=== PATIENT | male | born 1970 | race Caucasian/White ===

== ENCOUNTER 2019-08-11 08:06 | Emergency (ER) | payer OTHER ==
[~2019-08-11] VITALS: Ht 177 cm; Wt 97.3 kg
[2019-08-11 09:37] LABS: BASOPHILS % (AUTO) 0 % (0-10); EOSINOPHILS # (AUTO) 0.2 10^3/uL (0.0-0.3); EOSINOPHILS % (AUTO) 1 % (0-10); HEMATOCRIT 46 % (40-54); HEMOGLOBIN 16.1 G/DL (13.3-17.7); LYMPHOCYTES # (AUTO) 1.3 X 10^3 (1.0-4.0); LYMPHOCYTES % (AUTO) 9 % (12-44); MEAN CORPUSCULAR HEMOGLOBIN 29 PG (25-34); MEAN CORPUSCULAR HGB CONC 35 G/DL (32-36); MEAN CORPUSCULAR VOLUME 81 FL (80-99); MEAN PLATELET VOLUME 11.2 FL (7.4-10.4); MONOCYTES # (AUTO) 1.1 X 10^3 (0.0-1.0); MONOCYTES % (AUTO) 8 % (0-12); NEUTROPHILS # (AUTO) 11.3 X 10^3 (1.8-7.8); NEUTROPHILS % (AUTO) 81 % (42-75); PLATELET COUNT 215 10^3/uL (130-400); RED CELL DISTRIBUTION WIDTH 13.7 % (10.0-14.5); WHITE BLOOD COUNT 13.9 10^3/uL (4.3-11.0)
[2019-08-11 09:43] LABS: INR 0.9 (0.8-1.4)
[2019-08-11 09:49] LABS: ALANINE AMINOTRANSFERASE 58 U/L (0-55); ALBUMIN 4.7 GM/DL (3.2-4.5); ALKALINE PHOSPHATASE 70 U/L (40-136); BILIRUBIN,TOTAL 0.8 MG/DL (0.1-1.0); BUN/CREATININE RATIO 19; CALCIUM 9.8 MG/DL (8.5-10.1); CARBON DIOXIDE 23 MMOL/L (21-32); CHLORIDE 108 MMOL/L (98-107); CREATININE SERUM 1.16 MG/DL (0.60-1.30); GFR ESTIMATED > 60; GLUCOSE 98 MG/DL (70-105); POTASSIUM 4.4 MMOL/L (3.6-5.0); SODIUM 141 MMOL/L (135-145); TOTAL PROTEIN 7.9 GM/DL (6.4-8.2)
[2019-08-11] MEDS ORDERED: KETOROLAC 30 MG/ML VIAL IVP STA (09:50)
[2019-08-11] MEDS ORDERED: fentaNYL INJECTION 100 MCG/2 ML AMP IVP STA (09:50)
--- NOTE | 2019-08-11 09:55 | Diagnostic Imaging Report ---
INDICATION: Right hand swelling, rash FINDINGS: The lungs are clear. The heart size and vascularity are within normal limits. There is no effusion or pneumothorax. IMPRESSION: No acute appearing abnormality. Dictated by: Dictated on workstation # [id number]
--- NOTE | 2019-08-11 10:14 | ED General ---
General Chief Complaint: Upper Extremity Stated Complaint: R HAND PAIN Nursing Triage Note: PT PRESENTS TO ED WITH COMPLAINTS OF R HAND SWELLING, R ELBOW RASH AND SWELLING. REPORTS PAIN SHOOTING DOWN FROM R ELBOW TO R HAND. Nursing Sepsis Screen: No Definite Risk Source of Information: Patient Exam Limitations: No Limitations History of Present Illness Date Seen by Provider: Aug 11, 2019 Time Seen by Provider: 09:44 Initial Comments Here with report of right elbow pain and right hand pain at the third and fourth MCP joints. Redness noted of both areas. 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 Noted that he had right hand pain starting yesterday and right elbow pain. This is worsened today with increased swelling. Presents for concerns of infection. Denies nausea or vomiting. Denies specific injury. Timing/Duration: 24 Hours, Getting Worse Associated Systoms: No Chest Pain, No Cough, No Fever/Chills, No Headaches, No Nausea/Vomiting, No Shortness of Air, No Weakness Allergies and Home Medications Allergies Coded Allergies: No Known Drug Allergies (Unverified , 08/11/19) Home Medications No Active Prescriptions or Reported Meds Patient Home Medication List Home Medication List Reviewed: Yes Review of Systems Review of Systems Constitutional: see HPI; No chills, No fever EENTM: no symptoms reported Respiratory: no symptoms reported Cardiovascular: no symptoms reported Gastrointestinal: no symptoms reported Musculoskeletal: see HPI, joint pain, joint swelling, muscle pain Skin: change in color, lesions, rash Psychiatric/Neurological: No Symptoms Reported Hematologic/Lymphatic: No Symptoms Reported All Other Systems Reviewed Negative Unless Noted: Yes Past Gxpyrke-Ckdlrf-Hjleyw Hx Past Med/Social Hx: Reviewed Nursing Past Med/Soc Hx Patient Social History Alcohol Use: Denies Use Recreational Drug Use: No Smoking Status: Never a Smoker Type Used: Smokeless Tobacco Recent Foreign Travel: No Contact w/Someone Who Travel: No Recent Infectious Disease Expo: No Recent Hopitalizations: No Physical Abuse: No Sexual Abuse: No Mistreated: No Fear: No Seasonal Allergies Seasonal Allergies: No Past Medical History Surgeries: Yes (facial, jaw reconstruction) Orthopedic Respiratory: No Cardiac: No Neurological: No Genitourinary: No Gastrointestinal: No Musculoskeletal: No Endocrine: No HEENT: No Cancer: No Psychosocial: No Integumentary: No Blood Disorders: No Family Medical History Reviewed Nursing Family Hx No Pertinent Family Hx Physical Exam-Suspected Sepsis Physical Exam Vital Signs Vital Signs - First Documented 08/11/19 08:30 Temp 37.0 Pulse 69 Resp 20 B/P (MAP) 137/74 (95) Pulse Ox 93 Capillary Refill : Less Than 3 Seconds Blood Pressure Mean: 95 Height, Weight, BMI Height: '" Weight: lbs. oz. kg; 31.00 BMI Method: General Appearance: WD/WN, Mild Distress HEENT: PERRL/EOMI, Pharynx Normal Neck: Non Tender, Supple Respiratory: Lungs Clear, Normal Breath Sounds Cardiovascular: Regular Rate, Rhythm, No Murmur Gastrointestinal: Non Tender, Soft Back: Normal Inspection, No CVA Tenderness, No Vertebral Tenderness Extremity: Swelling (right elbow), Other (retains range of motion to the hand and elbow but pain with range of motion in both areas on the right.) Neurologic/Psychiatric: Alert, Oriented x3 Skin: warm/dry, other (erythema noted to the third and fourth MCP of the right hand with swelling into the webspace as well as erythema. Mild swelling and plaque psoriasis of the right elbow with tenderness to the medial aspect and posterior and lesser extent to the lateral aspect. Redness at the hand and elbow but not in between.) Focused Exam Lactate Level 08/11/19 09:10: Lactic Acid Level 1.11 Lactic Acid Level Laboratory Tests Test 08/11/19 09:10 Lactic Acid Level 1.11 MMOL/L (0.50-2.00) Progress/Results/Core Measures Suspected Sepsis Recent Fever Within 48 Hours: No Infection Criteria Present: None New/Unexplained Altered Menta: No Sepsis Screen: No Definite Risk SIRS Temperature: Pulse: 69 Respiratory Rate: 20 Laboratory Tests 08/11/19 09:10: White Blood Count 13.9H Blood Pressure 137 /74 Mean: 95 08/11/19 09:10: Lactic Acid Level 1.11 Laboratory Tests 08/11/19 09:10: Creatinine 1.16, INR Comment 0.9, Platelet Count 215, Total Bilirubin 0.8 Results/Orders Lab Results Laboratory Tests Test 08/11/19 09:10 08/11/19 11:02 Range/Units White Blood Count 13.9 H 4.3-11.0 10^3/uL Red Blood Count 5.64 4.35-5.85 10^6/uL Hemoglobin 16.1 13.3-17.7 G/DL Hematocrit 46 40-54 % Mean Corpuscular Volume 81 80-99 FL Mean Corpuscular Hemoglobin 29 25-34 PG Mean Corpuscular Hemoglobin Concent 35 32-36 G/DL Red Cell Distribution Width 13.7 10.0-14.5 % Platelet Count 215 130-400 10^3/uL Mean Platelet Volume 11.2 H 7.4-10.4 FL Neutrophils (%) (Auto) 81 H 42-75 % Lymphocytes (%) (Auto) 9 L 12-44 % Monocytes (%) (Auto) 8 0-12 % Eosinophils (%) (Auto) 1 0-10 % Basophils (%) (Auto) 0 0-10 % Neutrophils # (Auto) 11.3 H 1.8-7.8 X 10^3 Lymphocytes # (Auto) 1.3 1.0-4.0 X 10^3 Monocytes # (Auto) 1.1 H 0.0-1.0 X 10^3 Eosinophils # (Auto) 0.2 0.0-0.3 10^3/uL Basophils # (Auto) 0.0 0.0-0.1 10^3/uL Prothrombin Time 13.0 12.2-14.7 SEC INR Comment 0.9 0.8-1.4 Activated Partial Thromboplast Time 29 24-35 SEC Sodium Level 141 135-145 MMOL/L Potassium Level 4.4 3.6-5.0 MMOL/L Chloride Level 108 H 98-107 MMOL/L Carbon Dioxide Level 23 21-32 MMOL/L Anion Gap 10 5-14 MMOL/L Blood Urea Nitrogen 22 H 7-18 MG/DL Creatinine 1.16 0.60-1.30 MG/DL Estimat Glomerular Filtration Rate > 60 BUN/Creatinine Ratio 19 Glucose Level 98 70-105 MG/DL Lactic Acid Level 1.11 0.50-2.00 MMOL/L Calcium Level 9.8 8.5-10.1 MG/DL Corrected Calcium 8.5-10.1 MG/DL Total Bilirubin 0.8 0.1-1.0 MG/DL Aspartate Amino Transf (AST/SGOT) 48 H 5-34 U/L Alanine Aminotransferase (ALT/SGPT) 58 H 0-55 U/L Alkaline Phosphatase 70 40-136 U/L C-Reactive Protein High Sensitivity 1.37 H 0.00-0.50 MG/DL Total Protein 7.9 6.4-8.2 GM/DL Albumin 4.7 H 3.2-4.5 GM/DL Urine Color YELLOW Urine Clarity CLEAR Urine pH 8.5 5-9 Urine Specific [place] 1.020 1.016-1.022 Urine Protein NEGATIVE NEGATIVE Urine Glucose (UA) NEGATIVE NEGATIVE Urine Ketones NEGATIVE NEGATIVE Urine Nitrite NEGATIVE NEGATIVE Urine Bilirubin NEGATIVE NEGATIVE Urine Urobilinogen 0.2 < = 1.0 MG/DL Urine Leukocyte Esterase NEGATIVE NEGATIVE Urine RBC (Auto) NEGATIVE NEGATIVE Urine RBC NONE /HPF Urine WBC NONE /HPF Urine Squamous Epithelial Cells RARE /HPF Urine Crystals NONE /LPF Urine Bacteria NEGATIVE /HPF Urine Casts NONE /LPF Urine Mucus NEGATIVE /LPF Urine Culture Indicated NO My Orders Orders - CHARLY BURNS MD Cbc With Automated Diff (08/11/19 09:30) Comprehensive Metabolic Panel (08/11/19 09:30) Blood Culture (08/11/19 09:30) Sputum Culture (08/11/19 09:30) Urinalysis (08/11/19 09:30) Urine Culture (08/11/19 09:30) Protime With Inr (08/11/19 09:30) Partial Thromboplastin Time (08/11/19 09:30) Chest 1 View, Ap/Pa Only (08/11/19 09:30) Ed Iv/Invasive Line Start (08/11/19 09:30) Vital Signs Adult Sepsis Patie Q15M (08/11/19 09:30) O2 (08/11/19 09:30) Remove Rings In Anticipation O (08/11/19 09:30) Lactic Acid Analyzer (08/11/19 09:30) Hs C Reactive Protein (08/11/19 09:30) Fentanyl Injection (Sublimaze Injection (08/11/19 09:50) Ketorolac Injection (Toradol Injection) (08/11/19 09:50) Ceftriaxone For Iv Use (Rocephin For I (08/11/19 11:30) Dexamethasone Injection (Decadron Inject (08/11/19 11:30) Vital Signs/I&O 08/11/19 08:30 Temp 37.0 Pulse 69 Resp 20 B/P (MAP) 137/74 (95) Pulse Ox 93 Capillary Refill : Less Than 3 Seconds Blood Pressure Mean: 95 Progress Note : Progress Note Seen and evaluated. IV, labs, UA, chest x-ray, blood cultures and lactic acid as well as COPD ordered. Toradol 30 mg IV and fentanyl 50 g IV ordered. Monitor patient. 1141: Labs at this point reassuring. This may be mixed picture of reactive and/or infectious. Rocephin 1 g IV and Decadron 10 mg IV. He feels so much better than earlier after medicines. Discharged home with return precautions. Patient verbalize understanding instructions and agreement with plan. He has full range of motion of the right elbow. Diagnostic Imaging Diagonstic Imaging: Xray Plain Films/CT/US/NM/MRI: chest Comments [facility] [place], [place] NAME: MAURIZIO TABOR [facility] REC#: [id number] PT STATUS: REG ER : 1970 PHYSICIAN: CHARLY BURNS MD ADMIT DATE: 08/11/19/ER Draft Date of Exam:08/11/19 CHEST 1 VIEW, AP/PA ONLY INDICATION: Right hand swelling, rash FINDINGS: The lungs are clear. The heart size and vascularity are within normal limits. There is no effusion or pneumothorax. IMPRESSION: No acute appearing abnormality. Dictated on workstation # [id number] Dict: 08/11/19 0952 Trans: 08/11/19 0955 [facility] [id number] Interpreted by: MAKI HO Electronically signed by: Departure Impression Primary Impression: Psoriasis Additional Impressions: Arthralgia Qualified Codes: M25.521 - Pain in right elbow Soft tissue infection Disposition: HOME, SELF-CARE Condition: Improved Departure-Patient Inst. Decision time for Depature: 11:43 Referrals: NO,LOCAL PHYSICIAN (PCP) Primary Care Physician Patient Instructions: Cellulitis (Skin Infection), Adult (DC), Joint Pain, Psoriasis (DC) Add. Discharge Instructions: All discharge instructions reviewed with patient and/or family. Voiced understanding. Take medications as directed. You may take Aleve or the generic one or 2 tablets twice daily as needed for pain. Do not exceed 4 tablets in a day. Drink plenty of fluids. Follow-up with your doctor or Dr. raymond for recheck and further evaluation. Return for worse pain, fever, vomiting, weakness, breathing problems or other concerns as needed. Scripts Cephalexin (Cephalexin) 500 Mg Tablet 500 MG PO QID, #28 TAB 0 Refills Prov: CHARLY BURNS MD 08/11/19 CHARLY BURNS MD Aug 11, 2019 10:14
[2019-08-11 11:10] LABS: BILIRUBIN,URINE NEGATIVE (NEGATIVE); CLARITY,URINE CLEAR; COLOR,URINE YELLOW; GLUCOSE, URINE (UA) NEGATIVE (NEGATIVE); KETONES,URINE NEGATIVE (NEGATIVE); LEUKOCYTE ESTERASE ,URINE NEGATIVE (NEGATIVE); NITRITE,URINE NEGATIVE (NEGATIVE); PH,URINE 8.5 (5-9); PROTEIN,URINE NEGATIVE (NEGATIVE)
[2019-08-11 11:17] LABS: BACTERIA,URINE NEGATIVE /HPF; SQUAMOUS EPITHELIAL CELL,UR RARE /HPF
[2019-08-11] MEDS ORDERED: cefTRIAXone FOR IV USE 1,000 MG in WATER (STERILE) FOR INJECTION 10 ML IV ONE (11:30)
[2019-08-11] MEDS ORDERED: DEXAMETHASONE 10 MG/ML (DECADRON) 1 ML VIAL IV ONE (11:30)
[2019-08-11] MEDS ORDERED: CEPH500T PO (11:45)
[2019-08-11 11:55] VITALS: BP 117/78
== END 2019-08-11 11:55 | disposition home or self-care (01) ==
LOC: ER 08:07
DX: L40.9 Psoriasis, unspecified (principal); M25.521 Pain in right elbow; M79.89 Other specified soft tissue disorders
CPT/HCPCS: 36415; 71045; 80053; 81000; 83605; 85025; 85610; 85730; 86141; 87040; 87088